=== PATIENT | female | born 1980 | race Caucasian/White ===

== ENCOUNTER → 2017-04-10 | Outpatient (CLI) | END | disposition home or self-care (01) ==

== ENCOUNTER 2018-07-29 10:42 | Inpatient (IN) | payer BC ==
[~2018-07-29] VITALS: Ht 162.6 cm; Wt 89.0 kg
[2018-07-29 10:05] LABS: BASOPHILS ABSOLUTE AUTO 0.03 K/mm3 (0.00-0.23); BASOPHILS PERCENT AUTO 1 % (0-2); EOSINOPHILS ABSOLUTE AUTO 0.03 K/mm3 (0.00-0.68); EOSINOPHILS PERCENT AUTO 1 % (0-6); Hematocrit 36.9 % (33.0-51.0); Hemoglobin 11.7 g/dL (11.5-16.0); IMMATURE GRAN ABSOLUTE AUTO 0.03 K/mm3 (0.00-0.10); IMMATURE GRAN PERCENT AUTO 1 % (0-1); LYMPHOCYTES PERCENT AUTO 27 % (21-46); MONOCYTES ABSOLUTE AUTO 0.41 K/mm3 (0.16-1.47); MONOCYTES PERCENT AUTO 7 % (4-13); Mean Corpuscular HGB 29.2 pg (26.0-34.0); Mean Corpuscular HGB Conc 31.7 g/dL (31.5-36.5); Mean Corpuscular Volume 92 fL (80-100); Mean Platelet Volume 10.6 fL (9.1-12.4); NEUTROPHILS ABSOLUTE AUTO 4.13 K/mm3 (1.96-9.15); NEUTROPHILS PERCENT AUTO 65 % (41-73); Platelet Count 150 K/mm3 (150-400); RDW Coefficient Variation 13.5 % (11.7-14.2); Red Blood Cell Count 4.01 M/mm3 (3.80-5.20); White Blood Cell Count 6.33 K/mm3 (4.00-11.30)
[~2018-07-29 10:42] MED LIST: AMBIEN; BUSP15 PO; LORA1 PO; ONDA4ODT MM; PREN-16 PO; SERT100 PO; SERT50 PO
--- NOTE | 2018-07-31 08:12 | NUR ---
07/31/18 0812 Dorota Gale FEMALE OVER REPEAT SECTION WITH BILATERAL SALPINGECTOMY. APGARS 9/9. WT 7-1 ([id number]). PLACENTA [id number]. CORD SEGMENT GIVEN TO RT. CORD BLOOD GIVEN TO BABY RN.
[2018-07-31 08:23] LABS: PCO2 Cord - Arterial 50.8 mmHg (40-50); PO2 Cord - Arterial < 16 mmHg (16-20); pH Cord - Arterial 7.27 (7.28-7.35)
[2018-07-31 08:27] LABS: PCO2 Cord - Venous 33.8 mmHg (40-50); pH Umbilical Cord - Venous 7.39 (7.26-7.35)
[2018-07-31 08:28] LABS: PO2 Cord - Venous 30.7 mmHg (28-32)
--- NOTE | 2018-07-31 10:30 | NUR ---
ASSUMED CARE OF PT. RESTING IN BED WTIH NO COMPLAINTS. AT SIDE.
--- NOTE | 2018-07-31 18:39 | NUR ---
REPORT TO ONCOMING SHIFT
[2018-08-01 05:32] LABS: BASOPHILS ABSOLUTE AUTO 0.03 K/mm3 (0.00-0.23); BASOPHILS PERCENT AUTO 0 % (0-2); EOSINOPHILS ABSOLUTE AUTO 0.06 K/mm3 (0.00-0.68); EOSINOPHILS PERCENT AUTO 1 % (0-6); Hematocrit 27.6 % (33.0-51.0); Hemoglobin 8.9 g/dL (11.5-16.0); IMMATURE GRAN ABSOLUTE AUTO 0.04 K/mm3 (0.00-0.10); IMMATURE GRAN PERCENT AUTO 0 % (0-1); LYMPHOCYTES ABSOLUTE AUTO 2.21 K/mm3 (0.84-5.20); LYMPHOCYTES PERCENT AUTO 24 % (21-46); MONOCYTES ABSOLUTE AUTO 0.44 K/mm3 (0.16-1.47); MONOCYTES PERCENT AUTO 5 % (4-13); Mean Corpuscular HGB 28.8 pg (26.0-34.0); Mean Corpuscular HGB Conc 32.2 g/dL (31.5-36.5); Mean Platelet Volume 10.5 fL (9.1-12.4); NEUTROPHILS ABSOLUTE AUTO 6.44 K/mm3 (1.96-9.15); NEUTROPHILS PERCENT AUTO 70 % (41-73); Platelet Count 121 K/mm3 (150-400); RDW Standard Deviation 45.1 fL (35.1-46.3); Red Blood Cell Count 3.09 M/mm3 (3.80-5.20); White Blood Cell Count 9.22 K/mm3 (4.00-11.30)
[2018-08-01 05:33] LABS: Mean Corpuscular Volume 89 fL (80-100)
--- NOTE | 2018-08-01 07:34 | NUR ---
UP IN HALLS AMBULATING
--- NOTE | 2018-08-02 08:48 | NUR ---
PAIN: AT 0800 PT C/O PAIN 8/10 POST SHOWER. AFTER 15 MIN OF BEING DOWN IN BED POST SHOWER PT DENIES NEED FOR ANY MEDICATION FOR BREAKTHROUGH PAIN. WILL MEDICATE WITH PERCOCET ORDERED PER PT REQUEST
[2018-08-02] MEDS ORDERED: IBUP800 PO (09:02)
[2018-08-02] MEDS ORDERED: Percocet 5-3251 EACH PO (09:02)
--- NOTE | 2018-08-02 11:02 | NUR ---
DISCHARGE INSTRUCTIONS VERBAL AND WRITTEN GIVEN TO PARENTS. PARENTS VERBALIZE UNDERSTANDING. QUESTIONS ANSWERED. BELONGINGS GATHERED AND TAKEN TO PRIVATE CAR BY FOB
--- NOTE | 2018-08-02 14:09 | NUR ---
PT ESCORTED TO PRIVATE CAR FOR DISCHARGE IN STABLE CONDITION AT 1120. BELONGINGS TAKEN WITH PT.
--- NOTE | 2018-08-02 14:26 | NUR ---
LOTS OF DISCUSSION AND EDUCATION WITH PT REGARDING POST DEPRESSION AND ANXIETY THIS HOSPITAL STAY. PT STATES THIS EXPERIENCE WAS NIGHT AND DAY BETTER THAN HER LAST [facility] EXPERIENCE. PT APPEARS TO BE COPING WELL. SUPPORT SYSTEM IN PLACE. EVERYONE VERBALIZES UNDERSTANDING TO REACH OUT TO MD WITH EARLY SIGNS OF POST DEPRESSION OR ANXIETY. PT HAS RX FOR ZOLOFT AND ATIVAN.
== END 2018-08-02 11:19 | disposition home or self-care (01) | DRG 785 ==
LOC: BC 07-31 05:35
PROVIDERS: ADMIT Obstetrics & Gynecology
PROC: 10D00Z1 Extraction of Products of Conception, Low, Open Approach (ICD-10-PCS; principal; 2018-07-31 07:30)
PROC: 0UT70ZZ Resection of Bilateral Fallopian Tubes, Open Approach (ICD-10-PCS; 2018-07-31 07:30)
DX: O34.211 Maternal care for low transverse scar from previous cesarean delivery (principal); Z30.2 Encounter for sterilization; Z3A.39 39 weeks gestation of pregnancy; Z37.0 Single live birth; Z91.040 Latex allergy status
CPT/HCPCS: 36415; 82803; 85025; 86850; 86900; 86901; 88302; J0690; J1885; J2590; J2765; J3010; J7120

== ENCOUNTER → 2018-10-15 | Outpatient (CLI) | payer BC ==
[~2018-10-15] MED LIST changes: +IBUP800 PO; +Percocet 5-3251 EACH PO
== END | disposition home or self-care (01) ==
LOC: LAB SHORT 10:00 → LAB 10:00
DX: Z09 Encounter for follow-up examination after completed treatment for conditions other than malignant neoplasm (principal); Z86.14 Personal history of Methicillin resistant Staphylococcus aureus infection
CPT/HCPCS: 87081

== ENCOUNTER → 2021-02-27 | Outpatient (CLI) | payer BC | END | disposition home or self-care (01) | LOC: LAB SHORT 11:10 | DX: Z01.812 Encounter for preprocedural laboratory examination (principal); Z86.14 Personal history of Methicillin resistant Staphylococcus aureus infection | CPT/HCPCS: 87081 ==

== ENCOUNTER 2021-03-09 10:19 | Day surgery (SDC) | payer BC ==
[2021-03-07 09:50] LABS: BASOPHILS ABSOLUTE AUTO 0.04 K/mm3 (0.00-0.23); BASOPHILS PERCENT AUTO 1 % (0-2); EOSINOPHILS ABSOLUTE AUTO 0.05 K/mm3 (0.00-0.68); EOSINOPHILS PERCENT AUTO 1 % (0-6); Hematocrit 43.5 % (33.0-51.0); Hemoglobin 14.2 g/dL (11.5-16.0); IMMATURE GRAN ABSOLUTE AUTO 0.01 K/mm3 (0.00-0.10); IMMATURE GRAN PERCENT AUTO 0 % (0-1); LYMPHOCYTES ABSOLUTE AUTO 1.38 K/mm3 (0.84-5.20); LYMPHOCYTES PERCENT AUTO 35 % (21-46); MONOCYTES ABSOLUTE AUTO 0.27 K/mm3 (0.16-1.47); MONOCYTES PERCENT AUTO 7 % (4-13); Mean Corpuscular HGB 30.1 pg (26.0-34.0); Mean Corpuscular HGB Conc 32.6 g/dL (31.5-36.5); Mean Corpuscular Volume 92 fL (80-100); Mean Platelet Volume 10.9 fL (9.1-12.4); NEUTROPHILS ABSOLUTE AUTO 2.23 K/mm3 (1.96-9.15); NEUTROPHILS PERCENT AUTO 56 % (41-73); Platelet Count 175 K/mm3 (150-400); RDW Coefficient Variation 12.2 % (11.7-14.2); Red Blood Cell Count 4.71 M/mm3 (3.80-5.20); White Blood Cell Count 3.98 K/mm3 (4.00-11.30)
[~2021-03-09] VITALS: Ht 162.6 cm; Wt 75.0 kg
--- NOTE | 2021-03-09 12:36 | NUR ---
History, Chart, Medications and Allergies reviewed before start of procedure. Lungs clear T/O to Auscultation. Patient confirms NPO status and agrees with scheduled surgery. Pre-Op teaching done. Pt verbalizes understanding. Patient reports completing Chlorhexadine shower X2 prior to admission to hospital.
--- NOTE | 2021-03-09 18:19 | NUR ---
SHIFT SUMMARY PT STATUS POST FOR TOTAL LAP HYSTER WITH OVARIES STILL INTACT. 4 LAP SITES ON ABD WITH DERMABOND, CDI. PT HAS CHRONIC HYPOTENSION AND WAS SLIGHTLY DIZZY AFTER SURGERY. NO C/O PAIN OR NAUSEA AT THIS TIME. WILL POSSIBLY DC TOMORROW.
[2021-03-10 04:43] LABS: BASOPHILS ABSOLUTE AUTO 0.02 K/mm3 (0.00-0.23); BASOPHILS PERCENT AUTO 0 % (0-2); EOSINOPHILS ABSOLUTE AUTO 0.02 K/mm3 (0.00-0.68); EOSINOPHILS PERCENT AUTO 0 % (0-6); Hematocrit 35.9 % (33.0-51.0); IMMATURE GRAN ABSOLUTE AUTO 0.04 K/mm3 (0.00-0.10); IMMATURE GRAN PERCENT AUTO 1 % (0-1); LYMPHOCYTES PERCENT AUTO 25 % (21-46); MONOCYTES ABSOLUTE AUTO 0.68 K/mm3 (0.16-1.47); MONOCYTES PERCENT AUTO 8 % (4-13); Mean Corpuscular HGB 30.8 pg (26.0-34.0); Mean Corpuscular HGB Conc 33.4 g/dL (31.5-36.5); Mean Corpuscular Volume 92 fL (80-100); NEUTROPHILS ABSOLUTE AUTO 5.41 K/mm3 (1.96-9.15); NEUTROPHILS PERCENT AUTO 66 % (41-73); Platelet Count 163 K/mm3 (150-400); RDW Coefficient Variation 12.6 % (11.7-14.2); RDW Standard Deviation 42.5 fL (35.1-46.3); Red Blood Cell Count 3.89 M/mm3 (3.80-5.20); White Blood Cell Count 8.27 K/mm3 (4.00-11.30)
--- NOTE | 2021-03-10 06:16 | NUR ---
SHIFT SUMMARY POD1 TOTAL LAP ROBOTIC HYSTER, A/OX4, VSS, TOLERATING DIET, VOIDING AFTER CARREON OUT, PAIN WELL MANAGED, AMBULATES WELL. NO ACUTE EVENTS THIS SHIFT. CALL LIGHT IN REACH, WILL CTM AND REPORT TO DAY RN.
[2021-03-10] MEDS ORDERED: DOCU100 PO (11:30)
[2021-03-10] MEDS ORDERED: IBUP800 PO (11:31)
[2021-03-10] MEDS ORDERED: DULCOLAX400 MG/5 M PO (11:33)
[2021-03-10] MEDS ORDERED: Percocet 5-3251 EACH PO (11:36)
[2021-03-10] MEDS ORDERED: SENN187 PO (11:37)
[2021-03-10] MEDS ORDERED: PROM25 PO (11:37)
[2021-03-10] MEDS ORDERED: SIME80CH PO (11:38)
--- NOTE | 2021-03-10 12:30 | NUR ---
DISCHARGE SUMMARY PT POD #1 FOR TOTAL LAP HYSTER. 4 LAP SITES WITH DERMABOND ON ABD, CDI. MEDICATED FOR PAIN X3 THIS SHIFT. NO NAUSEA OR DIZZINESS. SLIGHT SPOTTING NOTED ON PAD. ABD BINDER APPLIED BEFORE LEAVING. DC'D HOME WITH .
--- NOTE | 2021-03-13 11:07 | NUR ---
03/13/21 1107 Radha Turpin VERIFICATIONS: EDIT CHART.
== END 2021-03-10 12:22 | disposition home or self-care (01) ==
LOC: ORSCMMR 10:19 → ORD 11:00 → ORSCMMR 11:00 → SURS 16:05 → ORSCMMR 03-10 12:22
PROVIDERS: Obstetrics & Gynecology
PROC: 0UT94ZZ Resection of Uterus, Percutaneous Endoscopic Approach (ICD-10-PCS; principal; 2021-03-09 11:30)
PROC: 8E0W4CZ Robotic Assisted Procedure of Trunk Region, Percutaneous Endoscopic Approach (ICD-10-PCS; principal; 2021-03-09 11:30)
DX: N92.0 Excessive and frequent menstruation with regular cycle (principal); N94.6 Dysmenorrhea, unspecified; N84.0 Polyp of corpus uteri; D50.0 Iron deficiency anemia secondary to blood loss (chronic); N80.0 Endometriosis of uterus; G40.909 Epilepsy, unspecified, not intractable, without status epilepticus; Z79.899 Other long term (current) drug therapy
CPT/HCPCS: 58570; S2900; 36415; 84702; 85025; 86850; 86900; 86901; 88307; A9270; J0690; J1100; J2250; J2370; J2405; J2704; J3010; J7050; J7120